=== PATIENT | female | born 1965 | race Caucasian/White ===

== ENCOUNTER 2021-08-12 07:00 | Emergency (ER) | payer OTHER ==
[2021-08-12 07:17] VITALS: BP 162/88
[2021-08-12] MEDS ORDERED: OLANZapine 5 MG ODT (ZyPREXA ZYDIS) PO STA (07:19)
[2021-08-12 07:47] LABS: BASOPHILS # (AUTO) 0.1 10^3/uL (0.0-0.1); BASOPHILS % (AUTO) 1 % (0-10); EOSINOPHILS # (AUTO) 0.3 10^3/uL (0.0-0.3); EOSINOPHILS % (AUTO) 4 % (0-10); HEMATOCRIT 39 % (35-52); HEMOGLOBIN 12.5 g/dL (11.5-16.0); LYMPHOCYTES # (AUTO) 1.9 10^3/uL (1.0-4.0); LYMPHOCYTES % (AUTO) 26 % (12-44); MEAN CORPUSCULAR HEMOGLOBIN 25 pg (25-34); MEAN CORPUSCULAR HGB CONC 32 g/dL (32-36); MEAN CORPUSCULAR VOLUME 80 fL (80-99); MEAN PLATELET VOLUME 9.1 fL (9.0-12.2); MONOCYTES # (AUTO) 0.6 10^3/uL (0.0-1.0); MONOCYTES % (AUTO) 8 % (0-12); NEUTROPHILS # (AUTO) 4.4 10^3/uL (1.8-7.8); NEUTROPHILS % (AUTO) 60 % (42-75); PLATELET COUNT 349 10^3/uL (130-400); WHITE BLOOD COUNT 7.4 10^3/uL (4.3-11.0)
--- NOTE | 2021-08-12 08:03 | ED General ---
General Chief Complaint: Altered Mental Status Stated Complaint: PSYCH EVAL Nursing Triage Note: Patient has been brought to ER by EMS. Per EMS patient was stopped by the police and they were concerned about the patient being confused and called EMS to check on the patient. EMS reports the patient makes no sense and they brought to her to ER for evaluation. Patient arrived to ER confused - she makes no sense, she will not answer any direct questions. Source of Information: Patient, Family (sister over the phone) History of Present Illness Date Seen by Provider: Aug 12, 2021 Time Seen by Provider: 07:00 Initial Comments 55 yo female patient presenting by EMS after being pulled over by the police. She was acting confused for the police so they had requested EMS to evaluate her. EMS reports that she was not making any sense for them so they brought her to the emergency department for evaluation. She is oriented to her name only. She seems to be reacting to internal stimuli and speaking to people that are not there and asking for people that are not around. She repeatedly asks where she is located. She asks if she is in [place] at times. Other times she asks if she is in [place] or other locations. She is from [place], [place]. Per her sister she has a history of alcohol abuse in the past but has not been a drinker for years, Diabetes, and had Covid in 2019. Since she had Covid she has had times that she gets confused but reportedly she has never acted like what she is doing now. Associated Systoms: No Cough, No Diaphoresis, No Nausea/Vomiting, No Shortness of Air Allergies and Home Medications Allergies Coded Allergies: No Known Drug Allergies (Unverified , 08/12/21) Patient Home Medication List Home Medication List Reviewed: Yes Albuterol Sulfate (Albuterol Sulfate) 2.5 Mg/3 Ml (0.083 %) Vial.neb, 2.5 MG INH, (Reported) Entered as Reported by: Shell Lugo on 08/12/21826 Last Action: New Order Dulaglutide (Trulicity) 0.75 Mg/0.5 Ml Pen.injctr, 0.75 MG SQ, (Reported) Entered as Reported by: Shell Lugo on 08/12/21826 Last Action: New Order Ezetimibe (Ezetimibe) 10 Mg Tablet, 10 MG PO, (Reported) Entered as Reported by: Shell Lugo on 08/12/21826 Last Action: New Order Fluticasone/Vilanterol (Breo Ellipta 200-25 Mcg INH) 200 Mcg-25 Mcg/Dose Blst.w.dev, 1 EACH IH, (Reported) Entered as Reported by: Shell Lugo on 08/12/21826 Last Action: New Order Furosemide (Furosemide) 20 Mg Tablet, 20 MG PO, (Reported) Entered as Reported by: Shell Lugo on 08/12/21826 Last Action: New Order Insulin Regular, Human (Humulin R U-500 Kwikpen) 500/Ml (3) Insuln.pen, 500 UNIT SQ, (Reported) Entered as Reported by: Shell Lugo on 08/12/21826 Last Action: New Order Metoprolol Succinate (Metoprolol Succinate) 50 Mg Tab.er.24h, 50 MG PO DAILY, (Reported) Entered as Reported by: Shell Lugo on 08/12/21826 Last Action: New Order Nitrofurantoin Monohyd/M-Cryst (Macrobid 100 mg Capsule) 100 Mg Capsule, 1 TAB PO BID Prescribed by: NOAH SOTO on 08/12/21 131 Omeprazole (Omeprazole) 20 Mg Capsule.dr, 20 MG PO, (Reported) Entered as Reported by: Shell Lugo on 08/12/21826 Last Action: New Order Tizanidine HCl (Tizanidine HCl) 4 Mg Tablet, 4 MG PO, (Reported) Entered as Reported by: Shell Lugo on 08/12/21826 Last Action: New Order Review of Systems Review of Systems Constitutional: see HPI Unable to obtain full ROS due to patient altered mental status and rambling speech with flight of ideas. Not consistently answering questions. Past Ihbxlvp-[id number]-Untzgy Hx Patient Social History Smoking Status: Unknown if Ever Smoked Use of E-Cig and/or Vaping dev: Unable to obtain Substance use?: Unable to obtain Alcohol Use?: Unable to obtain Past Medical History Surgery/Hospitalization HX: Diabetes mellitus Insulin Dependent, COPD, Hypercholesterolemia, Covid 2020, Recurrent UTI, Remote history of Alcohol abuse Physical Exam Vital Signs Vital Signs - First Documented 08/12/21 07:17 Temp 36.5 Pulse 94 Resp 20 B/P (MAP) 162/88 (112) Pulse Ox 96 O2 Delivery Room Air Capillary Refill : Height, Weight, BMI Height: '" Weight: lbs. oz. kg; BMI Method: General Appearance: Obese, Other (Rambling speech with flight of ideas) HEENT: PERRL/EOMI, Pharynx Normal, Moist Mucous Membranes Neck: Full Range of Motion, Normal Inspection, Non Tender, Supple Respiratory: Chest Non Tender, Lungs Clear, Normal Breath Sounds, No Accessory Muscle Use, No Respiratory Distress Cardiovascular: Regular Rate, Rhythm, Normal Peripheral Pulses Gastrointestinal: Normal Bowel Sounds, No Pulsatile Mass, Non Tender, Soft Rectal: Deferred Back: No CVA Tenderness, No Vertebral Tenderness Extremity: Normal Capillary Refill, Normal Inspection, Normal Range of Motion, Non Tender, No Calf Tenderness, Pedal Edema (trace to 1+ pedal edema) Neurologic/Psychiatric: Alert, 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, Disoriented (only oriented to self), Other (rambling speech with flight of ideas and seems to be reacting to internal stimuli or hallucinating as she is speaking to people that are not there and asking for people that are not present) Skin: Normal Color, Warm/Dry Progress/Results/Core Measures Suspected Sepsis SIRS Temperature: Pulse: 94 Respiratory Rate: 20 Laboratory Tests 08/12/21 07:40: White Blood Count 7.4 Blood Pressure 162 /88 Mean: 112 Laboratory Tests 08/12/21 07:40: Creatinine 1.04, Platelet Count 349, Total Bilirubin 0.8 Results/Orders Lab Results Laboratory Tests Test 08/12/21 07:35 08/12/21 07:40 08/12/21 07:44 Range/Units SARS-CoV-2 RNA (RT-PCR) Not Detected Not Detecte White Blood Count 7.4 4.3-11.0 10^3/uL Red Blood Count 4.92 3.80-5.11 10^6/uL Hemoglobin 12.5 11.5-16.0 g/dL Hematocrit 39 35-52 % Mean Corpuscular Volume 80 80-99 fL Mean Corpuscular Hemoglobin 25 25-34 pg Mean Corpuscular Hemoglobin Concent 32 32-36 g/dL Red Cell Distribution Width 15.8 H 10.0-14.5 % Platelet Count 349 130-400 10^3/uL Mean Platelet Volume 9.1 9.0-12.2 fL Immature Granulocyte % (Auto) 2 % Neutrophils (%) (Auto) 60 42-75 % Lymphocytes (%) (Auto) 26 12-44 % Monocytes (%) (Auto) 8 0-12 % Eosinophils (%) (Auto) 4 0-10 % Basophils (%) (Auto) 1 0-10 % Neutrophils # (Auto) 4.4 1.8-7.8 10^3/uL Lymphocytes # (Auto) 1.9 1.0-4.0 10^3/uL Monocytes # (Auto) 0.6 0.0-1.0 10^3/uL Eosinophils # (Auto) 0.3 0.0-0.3 10^3/uL Basophils # (Auto) 0.1 0.0-0.1 10^3/uL Immature Granulocyte # (Auto) 0.1 0.0-0.1 10^3/uL Sodium Level 140 135-145 MMOL/L Potassium Level 4.3 3.6-5.0 MMOL/L Chloride Level 104 98-107 MMOL/L Carbon Dioxide Level 23 21-32 MMOL/L Anion Gap 13 5-14 MMOL/L Blood Urea Nitrogen 19 H 7-18 MG/DL Creatinine 1.04 0.60-1.30 MG/DL Estimat Glomerular Filtration Rate 63 BUN/Creatinine Ratio 18 Glucose Level 342 H 70-105 MG/DL Calcium Level 9.5 8.5-10.1 MG/DL Corrected Calcium 9.5 8.5-10.1 MG/DL Total Bilirubin 0.8 0.1-1.0 MG/DL Aspartate Amino Transf (AST/SGOT) 22 5-34 U/L Alanine Aminotransferase (ALT/SGPT) 23 0-55 U/L Alkaline Phosphatase 71 40-136 U/L Total Protein 8.0 6.4-8.2 GM/DL Albumin 4.0 3.2-4.5 GM/DL Salicylates Level < 0.3 L 5.0-20.0 MG/DL Acetaminophen Level < 10 L 10-30 UG/ML Serum Alcohol < 10 <10 MG/DL Urine Color YELLOW Urine Clarity SL CLOUDY Urine pH 6.0 5-9 Urine Specific [place] 1.025 H 1.016-1.022 Urine Protein 2+ H NEGATIVE Urine Glucose (UA) 2+ H NEGATIVE Urine Ketones 1+ H NEGATIVE Urine Nitrite NEGATIVE NEGATIVE Urine Bilirubin NEGATIVE NEGATIVE Urine Urobilinogen 0.2 < = 1.0 MG/DL Urine Leukocyte Esterase NEGATIVE NEGATIVE Urine RBC (Auto) 1+ H NEGATIVE Urine RBC 0.2 /HPF Urine WBC 10-25 H /HPF Urine Squamous Epithelial Cells 0-2 /HPF Urine Crystals NONE /LPF Urine Bacteria LARGE H /HPF Urine Casts PRESENT /LPF Urine Hyaline Casts 0-2 H /LPF Urine Mucus SMALL H /LPF Urine Culture Indicated YES Urine Opiates Screen NEGATIVE NEGATIVE Urine Oxycodone Screen NEGATIVE NEGATIVE Urine Methadone Screen NEGATIVE NEGATIVE Urine Propoxyphene Screen NEGATIVE NEGATIVE Urine Barbiturates Screen NEGATIVE NEGATIVE Ur Tricyclic Antidepressants Screen NEGATIVE NEGATIVE Urine Phencyclidine Screen NEGATIVE NEGATIVE Urine Amphetamines Screen NEGATIVE NEGATIVE Urine Methamphetamines Screen NEGATIVE NEGATIVE Urine Benzodiazepines Screen NEGATIVE NEGATIVE Urine Cocaine Screen NEGATIVE NEGATIVE Urine Cannabinoids Screen NEGATIVE NEGATIVE My Orders Orders - NOAH SOTO MD Ua Culture If Indicated (08/12/21 07:18) Cbc With Automated Diff (08/12/21 07:18) Comprehensive Metabolic Panel (08/12/21 07:18) Alcohol (08/12/21 07:18) Drug Screen Stat (Urine) (08/12/21 07:18) Acetaminophen (08/12/21 07:18) Salicylate (08/12/21 07:18) Ekg Tracing (08/12/21 07:18) Status Checks/Observation Q15M (08/12/21 07:18) Covid 19 Inhouse Test (08/12/21 07:19) Olanzapine Orally Dissolve Tab (Zyprexa (08/12/21 07:19) Urine Culture (08/12/21 07:44) Ceftriaxone 1 Gm Pre-Mix (Rocephin 1 Gm (08/12/21 08:37) Ns Iv 1000 Ml (Sodium Chloride 0.9%) (08/12/21 08:37) Straight Cath For Spec.-Adult (08/12/21 09:25) Vital Signs/I&O 08/12/21 07:17 Temp 36.5 Pulse 94 Resp 20 B/P (MAP) 162/88 (112) Pulse Ox 96 O2 Delivery Room Air Capillary Refill : Blood Pressure Mean: 112 Progress Note #1: Progress Note Obtain ECG, labs and covid swab in effort to medically screen patient. If she is medically stable and clear will see about mental health evaluation. Try Zyprexa 5 mg dissolving tablet to see if that might help with her hallucinations. Progress Note #2: Time: 08:29 Progress Note Her CBC appears stable without elevation of white blood cell count or acute abnormality. Chemistry is stable with elevated glucose of 334. Her urine drug screen is negative for any illicit substances. Her alcohol, acetaminophen, salicylate levels are all negative. Urinalysis is concentrated with a specific gravity of 1.025. She does have glucose and protein in her urine as well as 1+ ketones. She has 10-25 white blood cells and a large number of bacteria. Since she does have some dehydration and urinary tract infection will treat this with Rocephin 1 gm IV and 1 L NS IVF bolus for hydration. Discussed with Dr. Samayoa, Hospitalist for [facility]. Since the patient did not have Leukocytosis, nitrites or leukocyte esterase on UA, fever or other indication of infection the altered mental status and confusion may be more due to a mental health issue than simply UTI. Medically clear for evaluation by mental health. Progress Note #3: Time: 09:53 Progress Note Laura from the [facility] called back and stated that she felt that the patient's confusion and hallucinations were related to her urinary tract infection. She wanted to have the patient had more time with the antibiotics and see if that helps improve her mentation. I advised her that I did discuss the patient with the on-call hospitalist and agreed that medically this does not seem to be a severe urinary tract infection and did not seem to be enough that it would cause altered mental status or hallucinations. She stated that she would still prefer the patient to have a few more hours with the antibiotic on board before trying to speak with her. At this point the patient is more calm and cooperative. She asked to go to the bathroom. She is no longer yelling out or rambling in her speech at this point. Will await mental health evaluation. [id number] Covid test came back negative. Progress Note #4: Time: 12:16 Progress Note Laura from [facility] called to screen the patient. [id number] After speaking with the patient Laura had arrived at a safety plan with the patient. She will fax a Safety Plan for the patient to sign. Will discharge with the family when they arrive. They had told Angel that it would be 530-6 pm before they could get here to pick her up. Will send antibiotic to [facility] in [place], [place] where she has other prescriptions since she was given Rocephin 1 gm IV here. ECG Initial ECG Impression Date: Aug 12, 2021 Initial ECG Impression Time: 07:30 Initial ECG Rate: 84 Initial ECG Rhythm: Normal Sinus Initial ECG Comparisson: No Previous ECG Available Comment Normal sinus rhythm with a heart rate of [address] elevation. WI interval 169 ms. QT interval 383 ms with a QTc interval 424 ms. There is some artifact on the tracing. There is no prior tracing available for comparison. Departure Impression Primary Impression: Acute cystitis without hematuria Additional Impressions: Mental and behavioral problem in adult Acute delirium Disposition: 01 HOME, SELF-CARE Condition: Stable Departure-Patient Inst. Decision time for Depature: 13:12 Referrals: [facility] or see your regular provider for follow up Patient Instructions: Urinary Tract Infection, Adult ED, Delirium (Confusion) (DC) Add. Discharge Instructions: Stay well hydrated and drink plenty of water. Take full course of antibiotics to treat for urine infection. Follow up with your regular provider for continued concerns. All discharge instructions reviewed with patient and/or family. Voiced understanding. Scripts Nitrofurantoin Monohyd/M-Cryst (Macrobid 100 mg Capsule) 100 Mg Capsule 1 TAB PO BID for UTI for 7 Days, #14 CAP 0 Refills Prov: NOAH SOTO MD 08/12/21 NOAH SOTO MD Aug 12, 2021 08:03
[2021-08-12 08:06] LABS: BILIRUBIN,URINE NEGATIVE (NEGATIVE); CLARITY,URINE SL CLOUDY; COLOR,URINE YELLOW; GLUCOSE, URINE (UA) 2+ (NEGATIVE); KETONES,URINE 1+ (NEGATIVE); LEUKOCYTE ESTERASE ,URINE NEGATIVE (NEGATIVE); NITRITE,URINE NEGATIVE (NEGATIVE); PROTEIN,URINE 2+ (NEGATIVE)
[2021-08-12 08:17] LABS: ALKALINE PHOSPHATASE 71 U/L (40-136); BILIRUBIN,TOTAL 0.8 MG/DL (0.1-1.0); BUN/CREATININE RATIO 18; CALCIUM 9.5 MG/DL (8.5-10.1); CARBON DIOXIDE 23 MMOL/L (21-32); CHLORIDE 104 MMOL/L (98-107); CREATININE SERUM 1.04 MG/DL (0.60-1.30); GFR ESTIMATED 63; GLUCOSE 342 MG/DL (70-105); POTASSIUM 4.3 MMOL/L (3.6-5.0); SODIUM 140 MMOL/L (135-145)
[2021-08-12 08:18] LABS: ACETAMINOPHEN < 10 UG/ML (10-30); ALANINE AMINOTRANSFERASE 23 U/L (0-55); SALICYLATE < 0.3 MG/DL (5.0-20.0)
[2021-08-12 08:19] LABS: BENZODIAZEPINES SCREEN URINE NEGATIVE (NEGATIVE); COCAINE SCREEN URINE NEGATIVE (NEGATIVE)
[2021-08-12 08:20] LABS: AMPHETAMINE SCREEN, URINE NEGATIVE (NEGATIVE); BARBITURATE SCREEN URINE NEGATIVE (NEGATIVE); CANNABINOID SCREEN, URINE NEGATIVE (NEGATIVE); METHADONE STAT NEGATIVE (NEGATIVE); OPIATE SCREEN URINE NEGATIVE (NEGATIVE); OXYCODONE STAT NEGATIVE (NEGATIVE); PROPOXYPHENE STAT NEGATIVE (NEGATIVE); TRICYCLIC ANTIDEPRESSANTS SCRE NEGATIVE (NEGATIVE)
[2021-08-12 08:22] LABS: BACTERIA,URINE LARGE /HPF; HYALINE CASTS, URINE 0-2 /LPF; RBC,URINE 0.2 /HPF; SQUAMOUS EPITHELIAL CELL,UR 0-2 /HPF
[2021-08-12] MEDS ORDERED: FURO20TA4 PO (08:27)
[2021-08-12] MEDS ORDERED: DULA0.75 SQ (08:27)
[2021-08-12] MEDS ORDERED: TIZA-186 PO (08:27)
[2021-08-12] MEDS ORDERED: INSU500I SQ (08:27)
[2021-08-12] MEDS ORDERED: FLUT1BLS IH (08:27)
[2021-08-12] MEDS ORDERED: OMEP20CA18 PO (08:27)
[2021-08-12] MEDS ORDERED: METO50TA7 PO (08:27)
[2021-08-12] MEDS ORDERED: EZET10TA49 PO (08:27)
[2021-08-12] MEDS ORDERED: ALBU2.5V4 INH (08:27)
[2021-08-12] MEDS ORDERED: cefTRIAXone 1 GM PRE-MIX 50 ML IV STA (08:37)
[2021-08-12] MEDS ORDERED: NS IV 1000 ML 1,000 ML IV STA (08:37)
[2021-08-12] MEDS ORDERED: NITR-65 PO (13:12)
== END 2021-08-12 16:31 | disposition home or self-care (01) ==
LOC: ER FS 07:01
DX: N30.00 Acute cystitis without hematuria (principal); F69 Unspecified disorder of adult personality and behavior; R41.0 Disorientation, unspecified; E11.9 Type 2 diabetes mellitus without complications; E86.0 Dehydration; E66.9 Obesity, unspecified; Z20.822 Contact with and (suspected) exposure to COVID-19; Z79.4 Long term (current) use of insulin
CPT/HCPCS: 36415; 80053; 80306; 80320; 80329; 81000; 85025; 87077; 87088; 87186; 87636; 93005

== ENCOUNTER → 2021-08-12 | Emergency (ER) | payer OTHER ==
[~2021-08-12] MED LIST: ALBU2.5V4 INH; DULA0.75 SQ; EZET10TA49 PO; FLUT1BLS IH; FURO20TA4 PO; INSU500I SQ; METO50TA7 PO; NITR-65 PO; OMEP20CA18 PO; TIZA-186 PO
== END ==
LOC: EDUNIT# 06:46 → ER FS 07:13
DX: Z13.30 Encounter for screening examination for mental health and behavioral disorders, unspecified (principal)